=== PATIENT | male | born 1990 | race Caucasian/White ===

== ENCOUNTER 2024-04-07 00:20 | Emergency (ER) | payer BC ==
[~2024-04-07] VITALS: Ht 195.6 cm; Wt 109.0 kg
[2024-04-07 00:24] VITALS: O2SAT 97
[2024-04-07 01:00] LABS: BASOPHILS % 0.4 % (0.0-2.0); HEMOGLOBIN. 15.4 g/dL (14.0-18.0); LYMPHOCYTES % 14.9 % (20.0-50.0); MEAN CORPUSCULAR HEMOGLOBIN 30.9 pg (28.0-32.0); MEAN CORPUSCULAR VOLUME 88.4 fL (80.0-94.0); MEAN PLATELET VOLUME 8.2 fl (7.4-10.4); MONOCYTES % 7.8 % (2.0-8.0); NEUTROPHILS % 75.9 % (40.0-76.0); PLATELET 220 x1000/uL (130-400); RED BLOOD CELL COUNT 4.97 mill/uL (4.7-6.1); RED CELL DISTRIBUTION WIDTH 13.9 % (11.6-14.6); WHITE BLOOD COUNT 10.2 x1000/uL (4.5-11.0)
[2024-04-07 01:02] LABS: CHLORIDE 99 mEq/L (98-107); POTASSIUM 3.9 mEq/L (3.5-5.1); SODIUM 134 mEq/L (136-145)
[2024-04-07 01:03] LABS: CARBON DIOXIDE 27 mEq/L (21-32)
[2024-04-07 01:04] LABS: CALCIUM 10.3 mg/dL (8.7-10.4)
[2024-04-07 01:08] LABS: GLUCOSE 180 mg/dL (70-105); UREA NITROGEN BLOOD 9 mg/dL (9-23)
[2024-04-07] MEDS: LORAZEPAM 1MG TABLET PO ONE (01:10)
[2024-04-07 01:23] LABS: TROPONIN I HIGH SENSITIVITY < 4 ng/L (3.0-53)
[2024-04-07 01:31] VITALS: BP 156/97; PULSE 87; RESP 20; TEMP 36.72516; O2SAT 98
== END 2024-04-07 01:32 | disposition home or self-care (01) ==
LOC: ER 00:20
DX: R00.2 Palpitations (principal); F14.90 Cocaine use, unspecified, uncomplicated; F10.20 Alcohol dependence, uncomplicated; Y90.9 Presence of alcohol in blood, level not specified
CPT/HCPCS: 36415; 71045; 80048; 84484; 85025; 93005; 99285